=== PATIENT | male | born 1955 | race Caucasian/White ===

== ENCOUNTER 2019-10-26 13:45 | Emergency (ER) | payer MEDICARE, SELFPAY ==
--- NOTE | 2019-10-26 13:52 | ECG_ITS ---
Measurements Intervals [place] Rate: 75 P: 42 FL: 145 QRS: -42 QRSD: 100 T: -54 QT: 366 QTc: 411 Interpretive Statements SINUS RHYTHM LEFT AXIS DEVIATION INFERIOR INFARCT, AGE INDETERMINATE BORDERLINE ST-T WAVE ABNORMALITY- ANTERIOR LEADS ABNORMAL ECG Electronically Signed On 10-26-2019 18:09:47 CDT by Amador Cottrell D.O.
[2019-10-26 13:55] VITALS: BP 145/71; PULSE 73; RESP 16; TEMP 36.6; O2SAT 97
--- NOTE | 2019-10-26 14:25 | ED.GENADULT ---
HPI - General Adult General Chief complaint: Chest Pain Stated complaint: chest pain/sore/pressure Time Seen by Provider: 10/26/19 14:04 Source: patient and RN notes reviewed Mode of arrival: ambulatory Limitations: no limitations History of Present Illness HPI narrative: 64-year-old male presents with complaints of constant mid-chest chest pain and flatus for 1 day. No treatment. Jaime says pain and flatus started in the evening of 10/25/19 and worsen throughout the last 19 hours. No exacerbating factors. History of coronary artery stent placement, last approximately 1.5 years ago per Jaime. Denies pain going up LT side of neck or down LT arm. No family history of sudden . Father had heart problems. Denies dyspnea, nausea, vomiting, diarrhea, or abdominal pain. Tolerating po intake well. Has been belching and had a normal bowel movement yesterday and today. 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 Denies fever or chills. Denies leg swelling, long car rides, hisorty of DVT, PE, LE edema, or dizziness. Remains active. Denies fever or chills. Denies headaches, weakness, fatigue, myalgia. Denies cough, rhinorrhea, congestion, and sore throat. Denies recent traveling. Denies concern for COVID-19 or exposures been home since [id number] order except for essential household needs and return home. Some parts of this dictation were generated by voice recognition software and may contain typographical and/or grammatical inaccuracies. Related Data Home Medications Medication Instructions Recorded Confirmed aspirin 81 mg PO DAILY 10/26/19 10/26/19 glimepiride 4 mg PO BID 10/26/19 10/26/19 lisinopril 10 mg PO DAILY 10/26/19 10/26/19 metformin 1,000 mg PO BID 10/26/19 10/26/19 sertraline 50 mg PO DAILY 10/26/19 10/26/19 simvastatin 40 mg PO DAILY 10/26/19 10/26/19 tamsulosin 0.4 mg PO DAILY 10/26/19 10/26/19 Allergies Allergy/AdvReac Type Severity Reaction Status Date / Time No Known Allergies Allergy Verified 10/26/19 14:56 Review of Systems Review of Systems: Narrative: CONSTITUTIONAL: Denies fever, chills, sweats. EYES: Denies visual changes, redness, discharge. ENT: Denies rhinorrhea, congestion, sore throat, otalgia. CARDIOVASCULAR: Complains of mid-chest chest pain. Denies palpitations, edema. RESPIRATORY: Denies dyspnea, wheezing, cough. GASTROINTESTINAL: Denies abdominal pain, nausea, vomiting, diarrhea. Complains of flatus and belching. GENITOURINARY: Denies dysuria, hematuria, abnormal discharge. SKIN: Denies rash or itching. MUSCULOSKELETAL: Denies acute back pain or myalgia. NEUROLOGIC: Denies numbness or focal weakness. PSYCHIATRIC: Denies anxiety or depression. All systems reviewed & are unremarkable except as noted in HPI and below. [facility] Past Medical History Medical History (Updated 10/26/19 @ 17:48 by EVELYN Rust) Anxiety Diabetes History of BPH Hypercholesteremia Hypertension Surgical History Surgical History (Updated 10/26/19 @ 17:29 by EVELYN Rust) History of coronary artery stent placement X3 History of nasal surgery Deviated septum Hx of appendectomy Family History Family History (Updated 10/26/19 @ 17:31 by EVELYN Rust) Father Diabetes mellitus Heart disease Mother Diabetes mellitus Sibling Heart disease Cancer Social History Social History (Updated 10/26/19 @ 17:32 by EVELYN Rust) Smoking status: Former smoker Tobacco type: cigarettes Second hand tobacco smoke exposure: No (girlfriend quit 6 months ago) Smoking end date: 10/15/12 Alcohol intake: former Substance use: never Living arrangements: with family Occupation/Education: retired Gender identity (if verbalized by the patient): Male Comments At time of signature, agree with nurse past medical, surgical, social, and family history. There is relevant patient and family history pertinent
== END 2019-10-26 14:21 | disposition short-term general hospital (02) ==
PROVIDERS: Emergency Provider Nurse Practitioner Family; PCP Family Medicine
DX: R07.9 Chest pain, unspecified (principal); E11.9 Type 2 diabetes mellitus without complications; N40.0 Benign prostatic hyperplasia without lower urinary tract symptoms; Z95.5 Presence of coronary angioplasty implant and graft; I10 Essential (primary) hypertension; Z79.82 Long term (current) use of aspirin; Z79.84 Long term (current) use of oral hypoglycemic drugs; F41.9 Anxiety disorder, unspecified; Z87.891 Personal history of nicotine dependence; R94.31 Abnormal electrocardiogram [ECG] [EKG]
CPT/HCPCS: 93005; 99213; G0463